=== PATIENT | male | born 1970 | race Caucasian/White ===

== ENCOUNTER 2018-09-17 14:29 | Observation (INO) | payer SELFPAY ==
[2018-09-17] MEDS ORDERED: ASPIRIN 81 MG TABLET, CHEWABLE PO ONE (15:05)
--- NOTE | 2018-09-17 15:08 | ER Document Report ---
ED Medical Screen (RME) - General Chief Complaint: Chest Pain Stated Complaint: CHEST PAIN, LEFT SHOULDER PAIN Time Seen by Provider: 09/17/18 15:05 Mode of Arrival: Ambulatory Information source: Patient Notes: 48-year-old male with hyperlipidemia presents with left-sided chest pain that started 15 hours prior to arrival. He describes it as a tightness that is worse with laying down. Denies any recent illness. I have greeted and performed a rapid initial assessment of this patient. A comprehensive ED assessment and evaluation of the patient, analysis of test results and completion of medical decision making process we will be contacted by additional ED providers. PHYSICAL EXAMINATION: Vital signs reviewed-tachycardic, hypertensive GENERAL: Well-appearing, well-nourished and in no acute distress. LUNGS: No respiratory distress Musculoskeletal: Normal range of motion NEUROLOGICAL: Normal speech, normal gait. PSYCH: Normal mood, normal affect. SKIN: Warm, Dry, normal turgor, no rashes or lesions noted. TRAVEL OUTSIDE OF THE [place] IN LAST 30 DAYS: No - HPI Onset: This morning Onset/Duration: Persistent Quality of pain: Other Severity: Moderate Associated Symptoms: Chest pain Exacerbated by: Supine Relieved by: Denies Similar symptoms previously: No Recently seen / treated by doctor: No - Related Data Smoking: Non-smoker Frequency of alcohol use: None Drug Abuse: None Allergies/Adverse Reactions: No Known Allergies Allergy (Unverified 09/17/18 14:31) Past Medical History - Social History Chew tobacco use (# tins/day): No Frequency of alcohol use: None Drug Abuse: None - Past Medical History Cardiac Medical History: Reports: Hx Hypercholesterolemia Pulmonary Medical History: Reports: Hx Asthma, Hx Bronchitis, Hx Pneumonia Neurological Medical History: Reports: Hx Migraine Renal/ Medical History: Reports: Hx Kidney Stones. Denies: Hx Peritoneal Dialysis GI Medical History: Reports: Hx Gastroesophageal Reflux Disease Psychiatric Medical History: Reports: Hx Depression Past Surgical History: Reports: Hx Tonsillectomy Physical Exam - Vital signs Vitals: Temp Pulse Resp BP Pulse Ox 98.8 F 103 H 18 156/110 H 97 09/17/18 14:42 09/17/18 14:42 09/17/18 14:42 09/17/18 14:42 09/17/18 14:42 Course - Vital Signs Vital signs: Temp Pulse Resp BP Pulse Ox 98.8 F 103 H 18 156/110 H 97 09/17/18 14:42 09/17/18 14:42 09/17/18 14:42 09/17/18 14:42 09/17/18 14:42 Doctor's Discharge - Discharge Referrals: LOCALMD,NO [Primary Care Provider] - Follow up as needed
[2018-09-17 16:16] LABS: ABSOLUTE BASOPHILS # (AUTO) 0.1 10^3/uL (0.0-0.2); ABSOLUTE EOSINOPHILS # (AUTO) 0.1 10^3/uL (0.0-0.6); ABSOLUTE LYMPHOCYTES (AUTO) 1.9 10^3/uL (0.5-4.7); ABSOLUTE MONOCYTES (AUTO) 0.7 10^3/uL (0.1-1.4); ABSOLUTE NEUT (AUTO) 6.1 10^3/uL (1.7-8.2); BASOPHILS % (AUTO) 0.9 % (0-2); HEMATOCRIT 49.3 % (37.9-51.0); HEMOGLOBIN 17.2 g/dL (13.5-17.0); LYMPHOCYTES % (AUTO) 21.6 % (13-45); MEAN CORPUSCULAR HEMOGLOBIN 30.5 pg (27.0-33.4); MEAN CORPUSCULAR HGB CONC 34.9 g/dL (32.0-36.0); MEAN CORPUSCULAR VOLUME 87 fl (80-97); MONOCYTES % (AUTO) 8.2 % (3-13); PLATELET COUNT 156 10^3/uL (150-450); RED BLOOD COUNT 5.64 10^6/uL (4.35-5.55); RED CELL DISTRIBUTION WIDTH 13.9 % (11.5-14.0); SEGMENTED NEUTROPHILS % (AUTO) 68.3 % (42-78); TOTAL CELLS COUNTED % (AUTO) 100 %; WHITE BLOOD COUNT 8.9 10^3/uL (4.0-10.5)
--- NOTE | 2018-09-17 16:19 | RADIOLOGY REPORT (SQ) ---
EXAM DESCRIPTION: CHEST 2 VIEWS COMPLETED DATE/TIME: 09/17/2018 4:01 pm REASON FOR STUDY: chest pain COMPARISON: None. TECHNIQUE: Frontal and lateral radiographic views of the chest acquired. NUMBER OF VIEWS: Two view. LIMITATIONS: None. FINDINGS: LUNGS AND PLEURA: No opacities, masses or pneumothorax. No pleural effusion. MEDIASTINUM AND HILAR STRUCTURES: No masses or contour abnormalities. HEART AND VASCULAR STRUCTURES: Heart normal size. No evidence for failure. BONES: No acute findings. HARDWARE: None in the chest. OTHER: No other significant finding. IMPRESSION: NO SIGNIFICANT RADIOGRAPHIC FINDING IN THE CHEST. TECHNICAL DOCUMENTATION: JOB ID: [id number] [employer] All Rights Reserved Reading location - IP/workstation name: [email or web address]
[2018-09-17 16:28] LABS: ALANINE AMINOTRANSFERASE 40 U/L (21-72); ALBUMIN 4.5 g/dL (3.5-5.0); ALKALINE PHOSPHATASE 72 U/L (38-126); ANION GAP 8 (5-19); ASPARTATE AMINO TRANSFERASE 39 U/L (17-59); BILIRUBIN,DIRECT 0.3 mg/dL (0.0-0.4); BILIRUBIN,TOTAL 0.9 mg/dL (0.2-1.3); BLOOD UREA NITROGEN 12 mg/dL (7-20); CALCIUM 9.6 mg/dL (8.4-10.2); CARBON DIOXIDE 27 mmol/L (22-30); CHLORIDE 105 mmol/L (98-107); CREATINE KINASE 95 U/L (55-170); GLUCOSE 108 mg/dL (75-110); POTASSIUM 4.2 mmol/L (3.6-5.0); SODIUM 139.9 mmol/L (137-145); TOTAL PROTEIN 7.9 g/dL (6.3-8.2)
[2018-09-17 16:46] LABS: CREATINE KINASE MB 0.78 ng/mL (<4.55)
[2018-09-17 16:51] LABS: TROPONIN I < 0.012 ng/mL
[2018-09-17] MEDS ORDERED: DIPHENHYDRAMINE HCL 50 MG/ML VIAL IV ONE (17:01)
[2018-09-17] MEDS ORDERED: METOCLOPRAMIDE HCL INJ/PF 10 MG/2 ML SDV IV ONE (17:01)
[2018-09-17] MEDS ORDERED: ACETAMINOPHEN 325 MG TABLET PO ONE (17:02)
[2018-09-17] MEDS ORDERED: METOPROLOL TARTRATE PF/INJ 5 MG/5 ML SDV IV ONE (17:03)
--- NOTE | 2018-09-17 17:50 | RADIOLOGY REPORT (SQ) ---
EXAM DESCRIPTION: CT HEAD WITHOUT COMPLETED DATE/TIME: 09/17/2018 5:30 pm REASON FOR STUDY: headache, htn COMPARISON: None. TECHNIQUE: Axial images acquired through the brain without intravenous contrast. Images reviewed wi th bone, brain and subdural windows. Images stored on PACS. All CT scanners at this facility use dose modulation, iterative reconstruction, and/or weight based d osing when appropriate to reduce radiation dose to as low as reasonably achievable (ALARA). [facility]: Dose Right [facility]: CareDose [facility]: Dose Right [facility]: Teradose 4D [facility]: [employer] Technologies RADIATION DOSE: CT Rad equipment meets quality standard of care and radiation dose reduction techniq ues were employed. CTDIvol: 53.2 mGy. DLP: 1044 mGy-cm. mGy. LIMITATIONS: None. FINDINGS: VENTRICLES: Normal size and contour. CEREBRUM: There is a 6 mm linear hyperdensity at the right frontal lobe (axial image 23/36). No mass effect, no midline shift. No evidence for acute territorial infarction. Normal mosqueda/white matter di fferentiation. CEREBELLUM: No mass effect. No hemorrhage. No alteration of density. No evidence for acute infarct ion. EXTRAAXIAL SPACES: No fluid collections. No masses. ORBITS AND GLOBE: Symmetrical contour of the globes. CALVARIUM: No depressed calvarial fracture. PARANASAL SINUSES: No air-fluid level. SOFT TISSUES: No hematoma. IMPRESSION: 6 mm linear hyperdensity at the right frontal lobe, may represent a small area of hemorr yoni versus a vascular malformation. Contrast-enhanced MRI can be obtained for better evaluation. EVIDENCE OF ACUTE STROKE: NO. COMMUNICATION The critical information above was relayed directly by me by telephone to Dr. Anthony mccray 09/17/2018 at 17:41 hours with readback verification. Quality ID # [id number]: Final reports with documentation of one or more dose reduction techniques (e.g., Au tomated exposure control, adjustment of the mA and/or kV according to patient size, use of iterative reconstruction technique) TECHNICAL DOCUMENTATION: JOB ID: [id number] [employer]- All Rights Reserved Reading location - IP/workstation name: [email or web address]
--- NOTE | 2018-09-17 19:44 | RADIOLOGY REPORT (SQ) ---
EXAM DESCRIPTION: MRI HEAD COMBO COMPLETED DATE/TIME: 09/17/2018 7:15 pm REASON FOR STUDY: andujar COMPARISON: None. TECHNIQUE: Multiplanar imaging includes noncontrasted T1, T2, FLAIR, diffusion with ADC map and post gadolinium contrast T1 sequences. Images stored on PACS. CONTRAST TYPE AND DOSE: 15 mL Dotarem. RENAL FUNCTION: GFR > 60. LIMITATIONS: None. FINDINGS: ANATOMY: No anomalies. Normal vascular flow voids. Pituitary fossa normal. CSF SPACES: Normal in size and contour. No hemorrhage. CEREBRUM: Sulci and gyri normal in size and contour. Normal white matter signal on FLAIR imaging. No evidence of hemorrhage, mass, or extraaxial fluid collection. No abnormal enhancement post contrast. POSTERIOR FOSSA: No signal alteration. No hemorrhage. No edema, masses, or mass effect. Internal yuni tory canals, cerebellopontine angles, mastoids normal. No enhancing lesions. No abnormal enhancement post contrast. DIFFUSION IMAGING: Negative for acute or subacute infarction. ORBITS: No masses. Globes normal. PARANASAL SINUSES: No fluid levels. Mucosa normal. OTHER: No other significant finding. IMPRESSION: NORMAL MRI OF THE BRAIN WITHOUT AND WITH INTRAVENOUS GADOLINIUM CONTRAST. EVIDENCE OF ACUTE STROKE: NO. TECHNICAL DOCUMENTATION: JOB ID: [id number] [employer]- All Rights Reserved Reading location - IP/workstation name: [email or web address]
--- NOTE | 2018-09-17 19:49 | ER Document Report ---
ED General - General Chief Complaint: Chest Pain Stated Complaint: CHEST PAIN, LEFT SHOULDER PAIN Time Seen by Provider: 09/17/18 15:05 Mode of Arrival: Ambulatory Information source: Patient Notes: This is the 48-year-old man with a history of elevated cholesterol who presents to the emergency room with left-sided chest pain radiating to the left shoulder and up the left neck associated with palpitations. Patient also reports headache. Patient states that he has had the pain on and off.. TRAVEL OUTSIDE OF THE [place] IN LAST 30 DAYS: No - HPI Onset: Yesterday Onset/Duration: Gradual Quality of pain: Dull Severity: Moderate Pain Level: 2 Associated symptoms: Chest pain. denies: Fever, Shortness of breath Exacerbated by: Denies Relieved by: Denies Similar symptoms previously: No Recently seen / treated by doctor: No - Related Data Allergies/Adverse Reactions: No Known Allergies Allergy (Unverified 09/17/18 14:31) Past Medical History - General Information source: Patient - Social History Smoking Status: Never Smoker Cigarette use (# per day): No Chew tobacco use (# tins/day): No Frequency of alcohol use: None Drug Abuse: None Lives with: Family Family History: None Patient has suicidal ideation: No Patient has homicidal ideation: No - Past Medical History Cardiac Medical History: Reports: Hx Hypercholesterolemia Pulmonary Medical History: Reports: Hx Asthma, Hx Bronchitis, Hx Pneumonia Neurological Medical History: Reports: Hx Migraine Renal/ Medical History: Reports: Hx Kidney Stones. Denies: Hx Peritoneal Dialysis GI Medical History: Reports: Hx Gastroesophageal Reflux Disease Psychiatric Medical History: Reports: Hx Depression Past Surgical History: Reports: Hx Tonsillectomy Review of Systems - Review of Systems Constitutional: denies: Chills, Fever EENT: No symptoms reported Cardiovascular: See HPI Respiratory: No symptoms reported Gastrointestinal: No symptoms reported Genitourinary: No symptoms reported Male Genitourinary: No symptoms reported Musculoskeletal: No symptoms reported Skin: No symptoms reported Hematologic/Lymphatic: No symptoms reported Neurological/Psychological: See HPI Physical Exam - Vital signs Vitals: Temp Pulse Resp BP Pulse Ox 98.8 F 103 H 18 156/110 H 97 09/17/18 14:42 09/17/18 14:42 09/17/18 14:42 09/17/18 14:42 09/17/18 14:42 Notes: Physical exam: GENERAL: Patient is alert and oriented x3, complaining of headache. Patient was hypertensive with a blood pressure of 156/110. HEAD: Atraumatic, normocephalic. EYES: Pupils equal round and reactive to light, extraocular movements intact, sclera anicteric, conjunctiva are normal. ENT: TMs normal, nares patent, oropharynx clear without exudates. Moist mucous membranes. NECK: Normal range of motion, supple without obvious mass or JVD. LUNGS: Breath sounds clear to auscultation bilaterally and equal. No wheezes rales or rhonchi. HEART: Regular rate and rhythm without murmurs, rubs or gallops. ABDOMEN: Soft, normoactive bowel sounds. No tenderness to palpation. No guarding, no rebound. No masses appreciated. EXTREMITIES: Normal range of motion, no pitting or edema. No clubbing or cyanosis. NEUROLOGICAL: Cranial nerves II through XII grossly intact. Normal speech, motor 5/5, moving all extremities. PSYCH: Normal mood, normal affect. SKIN: Warm, Dry, normal turgor, no rashes or lesions noted. Course - Re-evaluation Re-evalutation: 09/17/18 19:56 Note: Patient was treated with IV Reglan, IV Benadryl and IV fluids. CT of the head showed a small area of calcification and the differential included possible small bleed versus vascular anomaly. For this reason, MRI of the brain with and without contrast which was performed which showed no bleeding. Since headache has actually improved as the blood pressures come down. - Vital Signs Vital signs: Temp Pulse Resp BP Pulse Ox 98.8 F 103 H 18 156/110 H 97 09/17/18 14:42 09/17/18 14:42 09/17/18 14:42 09/17/18 14:42 09/17/18 14:42 - Laboratory Result Diagrams: 09/17/18 15:50 09/17/18 15:50 Laboratory results interpreted by me: 09/17/18 15:50 RBC 5.64 H Hgb 17.2 H - Diagnostic Test Radiology reviewed: Image reviewed, Reports reviewed - RI of the brain shows no bleeding Discharge - Discharge Clinical Impression: Chest pain, Uncontrolled hypertension Condition: Stable Disposition: ADMITTED OBSERVATION Admitting Provider: Hospitalist - Dr Espino Unit Admitted: Telemetry Referrals: LOCALMD,NO [NO LOCAL MD] - Follow up as needed
[2018-09-17] MEDS ORDERED: MORPHINE SULFATE 10 MG/ML INJ IV ONE (19:54)
[2018-09-17] MEDS ORDERED: ONDANSETRON HCL INJ/PF 4 MG/2 ML SDV IV ONE (19:54)
[2018-09-17] MEDS ORDERED: ONDANSETRON HCL INJ/PF 4 MG/2 ML SDV IV PRN (20:12)
[2018-09-17] MEDS ORDERED: ONDANSETRON 4 MG TAB.RAPDIS PO PRN (20:12)
[2018-09-17] MEDS ORDERED: MAG HYDROX/AL HYDROX/SIMETH SUSP 30 ML UDCUP PO PRN (20:12)
[2018-09-17] MEDS ORDERED: MAGNESIUM HYDROXIDE SUSP 30 ML UDCUP PO PRN (20:12)
[2018-09-17] MEDS ORDERED: ALBUTEROL SULFATE 0.083% NEB 2.5 MG/3 ML AMPUL NEB PRN (20:19)
[2018-09-17] MEDS ORDERED: ACETAMINOPHEN 650 MG SUPP.RECT PR PRN (20:19)
[2018-09-17] MEDS ORDERED: MORPHINE SULFATE 10 MG/ML INJ IV PRN ×3 (20:19)
[2018-09-17] MEDS ORDERED: ACETAMINOPHEN 325 MG TABLET PO PRN (20:19)
[2018-09-17] MEDS ORDERED: NITROGLYCERIN 0.4 MG/TAB 25 TAB/BOTTLE SL PRN (20:20)
[2018-09-17] MEDS ORDERED: GLUCAGON,HUMAN RECOMB 1 MG INJ SUBCUT PRN (20:31)
[2018-09-17] MEDS ORDERED: DEXTROSE 40% GEL 15 GM TUBE PO PRN ×2 (20:31)
[2018-09-17] MEDS ORDERED: DEXTROSE 50%-WATER 25 GM/50 ML DISP.SYRIN IV PRN ×2 (20:31)
[2018-09-17] MEDS ORDERED: HYDRALAZINE HCL INJ/PF 20 MG/1 ML SDV IV PRN (20:32)
[2018-09-17] MEDS: FAMOTIDINE 20 MG TABLET PO SCH (21:58)
[2018-09-17 22:26] LABS: CREATINE KINASE MB 0.64 ng/mL (<4.55)
[2018-09-17 22:27] LABS: TROPONIN I < 0.012 ng/mL
--- NOTE | 2018-09-18 00:53 | EKG REPORT ---
SEVERITY:- ABNORMAL ECG - SINUS TACHYCARDIA LEFT VENTRICULAR HYPERTROPHY BORDERLINE T ABNORMALITIES, INFERIOR LEADS : Confirmed by: Swetha Weaver MD 18-Sep-2018 00:52:31
--- NOTE | 2018-09-18 01:09 | PDOC H&P ---
History of Present Illness Admission Date/PCP: 09/17/18 20:00 Patient complains of: Chest pain History of Present Illness: LEWIS WEBER is a 48 year old male who presented to the emergency room with a history of sudden onset of chest pain on the morning of admission. He admits that he has been having a constant dull chest tightness/pressure in the left anterior chest with radiation to the left neck and left shoulder. The pain has been moderate to severe in intensity since its onset at approximately 1 AM on the morning of admission. The chest pain has been accompanied by moderate palpitations (tachycardia) occurring with the chest pain and a constant, severe , throbbing left facial and frontal headache having its onset shortly after the onset of his chest pain today. Both the headache and the chest pain were worsened by assuming a recumbent position. He denies similar prior episodes and has not identified any other aggravating or ameliorating factors for his chest pain or headache. He admits a past history of "triglyceride problems", but is not taking any medications and does not see a doctor on a regular basis. In the emergency room he was found to have negative cardiac enzymes, and EKG showing left ventricular hypertrophy with no evidence of acute myocardial ischemia or injury, a CT scan of the head which was questionable for an intracranial hemorrhage but an MRI of the brain showed no evidence of intracranial hemorrhage or intracranial vascular abnormalities. His chest pain improved in the emergency room and as such he was admitted for observation status and further evaluation and treatment with a Cardiolite stress test scheduled for the morning. Past Medical History Cardiac Medical History: Reports: Hyperlipidema - Hypertriglyceridemia Pulmonary Medical History: Reports: Asthma, Bronchitis, Pneumonia EENT Medical History: Reports: None Neurological Medical History: Reports: Migraine Denies: Seizures Endocrine Medical History: Denies: Diabetes Mellitus Type 1, Diabetes Mellitus Type 2, Hyperthyroidism, Hypothyroidism Renal/ Medical History: Denies: Chronic Kidney Disease, Nephrolithiasis Malignancy Medical History: Reports: None GI Medical History: Reports: Gastroesophageal Reflux Disease Denies: Cirrhosis, Hepatitis Musculoskeltal Medical History: Denies: Arthritis, Gout Skin Medical History: Denies: Eczema, Psoriasis Psychiatric Medical History: Reports: Depression, Tobacco Dependency Denies: Alcohol Dependency, Substance Abuse Traumatic Medical History: Reports: None Hematology: Denies: Anemia, Bleeding Tendencies Infectious Medical History: Reports: None Past Surgical History Past Surgical History: Reports: Tonsillectomy Social History Information Source: Patient Lives with: Family Smoking Status: Never Smoker Frequency of Alcohol Use: None Hx Recreational Drug Use: No Drugs: None Hx Prescription Drug Abuse: No - Advance Directive Resuscitation Status: Full Code Surrogate healthcare decision maker:: Mother: Mirna Weber Family History Family History: CAD, DM, Hypertension, Other - Stroke Parental Family History Reviewed: Yes Children Family History Reviewed: No Sibling(s) Family History Reviewed.: Yes Medication/Allergy Home Medications: Esomeprazole Mag Trihydrate [Nexium] 40 mg PO PRN PRN 09/17/18 Allergies/Adverse Reactions: No Known Allergies Allergy (Verified 09/17/18 21:27) Review of Systems Constitutional: PRESENT: as per HPI, headache(s). ABSENT: chills, fever(s) Eyes: ABSENT: visual disturbances, other - Ocular pain Ears: ABSENT: hearing changes, other - Ear pain Nose, Mouth, and Throat: ABSENT: mouth pain, sore throat Cardiovascular: PRESENT: as per HPI, chest pain, palpitations. ABSENT: dyspnea on exertion, edema, orthropnea Respiratory: ABSENT: cough, dyspnea Gastrointestinal: ABSENT: abdominal pain, constipation, diarrhea, nausea, vomiting Musculoskeletal: ABSENT: back pain, joint swelling Integumentary: ABSENT: pruritus, rash Neurological: PRESENT: as per HPI, other - Headache. ABSENT: confusion, convulsions, memory loss, syncope Psychiatric: ABSENT: anxiety, depression Endocrine: ABSENT: cold intolerance, heat intolerance Hematologic/Lymphatic: ABSENT: easy bleeding, easy bruising Physical Exam Vital Signs: Temp Pulse Resp BP Pulse Ox 98.8 F 103 H 18 156/110 H 97 09/17/18 14:42 09/17/18 14:42 09/17/18 14:42 09/17/18 14:42 09/17/18 14:42 General appearance: PRESENT: no acute distress, cooperative, well-developed, well-nourished Head exam: PRESENT: atraumatic, normocephalic Eye exam: PRESENT: EOMI. ABSENT: scleral icterus Ear exam: PRESENT: normal external ear exam. ABSENT: bleeding Mouth exam: PRESENT: dry mucosa, neck supple Neck exam: ABSENT: JVD, thyromegaly, tracheal deviation Respiratory exam: PRESENT: clear to auscultation chandrakant, symmetrical, unlabored Cardiovascular exam: PRESENT: RRR. ABSENT: clicks, diastolic murmur, gallop, rubs, systolic murmur Pulses: PRESENT: normal radial pulses, normal dorsalis pedis pul Vascular exam: PRESENT: normal capillary refill. ABSENT: pallor GI/Abdominal exam: PRESENT: normal bowel sounds, soft Rectal exam: PRESENT: deferred Extremities exam: ABSENT: joint swelling, pedal edema Musculoskeletal exam: PRESENT: full ROM, normal inspection Neurological exam: PRESENT: alert, oriented to person, oriented to place, oriented to time, oriented to situation, CN II-XII grossly intact. ABSENT: motor sensory deficit Psychiatric exam: PRESENT: appropriate affect, normal mood Skin exam: PRESENT: dry, intact, warm. ABSENT: jaundice, rash, urticaria Results Impressions: Chest X-Ray 09/17/18 15:06 IMPRESSION: NO SIGNIFICANT RADIOGRAPHIC FINDING IN THE CHEST. Head CT 09/17/18 17:02 IMPRESSION: 6 mm linear hyperdensity at the right frontal lobe, may represent a small area of hemorrhage versus a vascular malformation. Contrast-enhanced MRI can be obtained for better evaluation. EVIDENCE OF ACUTE STROKE: NO. Head MRI 09/17/18 17:43 IMPRESSION: NORMAL MRI OF THE BRAIN WITHOUT AND WITH INTRAVENOUS GADOLINIUM CONTRAST. EVIDENCE OF ACUTE STROKE: NO. Assessment & Plan - Diagnosis (1) Chest pain Qualifiers: Chest pain type: unspecified Qualified Code(s): R07.9 - Chest pain, unspecified Is this a current diagnosis for this admission?: Yes Plan: Patient will undergo a cardiac stress test tomorrow with Cardiolite imaging. He will have serial cardiac enzymes and EKG evaluations performed. The pain will be treated with intravenous morphine sulfate on a sliding scale as needed basis. Daily low-dose aspirin therapy is initiated. (2) Headache Qualifiers: Headache type: unspecified Headache chronicity pattern: unspecified pattern Intractability: not intractable Qualified Code(s): R51 - Headache Is this a current diagnosis for this admission?: Yes Plan: Patient's headache will be treated with Tylenol for lesser pain and a sliding scale intravenous morphine sulfate regimen for greater pain. (3) HLD (hyperlipidemia) Qualifiers: Hyperlipidemia type: unspecified Qualified Code(s): E78.5 - Hyperlipidemia , unspecified Is this a current diagnosis for this admission?: Yes Plan: A lipid profile will be obtained and appropriate therapy will be initiated based upon the results of his lipid profile. (4) Accelerated hypertension Is this a current diagnosis for this admission?: Yes Plan: Patient's blood pressure will be addressed initially utilizing hydralazine 20 mg IV every 4 hours as needed hypertension (systolic pressure greater than 160 or diastolic pressure greater than 100). Daily aspirin therapy will be initiated. Further antihypertensive treatment will be determined after his cardiac stress test has been performed. (5) Obesity (BMI 30-39.9) Is this a current diagnosis for this admission?: Yes Plan: Dietitian consult is obtained for initial instruction for this patient to assist him in lifestyle choices, weight loss and improved heart health. - Time Time Spent: 30 to 50 Minutes Critical Time spent with patient: Less than 15 minutes Medications reviewed and adjusted accordingly: No - On no medications at admission Anticipated discharge: Home Within: within 48 hours - Inpatient Certification Based on my medical assessment, after consideration of the patient's comorbidities, presenting symptoms, or acuity I expect that the services needed warrant INPATIENT care.: No I certify that my determination is in accordance with my understanding of Medicare's requirements for reasonable and necessary INPATIENT services [42 CFR 412.3e].: No Medical Necessity: Need For Continuous Telemetry Monitoring, Need for Pain Control
[2018-09-18 05:20] LABS: ABSOLUTE BASOPHILS # (AUTO) 0.1 10^3/uL (0.0-0.2); ABSOLUTE EOSINOPHILS # (AUTO) 0.2 10^3/uL (0.0-0.6); ABSOLUTE LYMPHOCYTES (AUTO) 2.6 10^3/uL (0.5-4.7); ABSOLUTE MONOCYTES (AUTO) 0.8 10^3/uL (0.1-1.4); ABSOLUTE NEUT (AUTO) 3.7 10^3/uL (1.7-8.2); BASOPHILS % (AUTO) 0.7 % (0-2); EOSINOPHILS % (AUTO) 2.3 % (0-6); HEMATOCRIT 45.1 % (37.9-51.0); HEMOGLOBIN 15.6 g/dL (13.5-17.0); LYMPHOCYTES % (AUTO) 35.7 % (13-45); MEAN CORPUSCULAR HEMOGLOBIN 30.2 pg (27.0-33.4); MEAN CORPUSCULAR HGB CONC 34.6 g/dL (32.0-36.0); MEAN CORPUSCULAR VOLUME 87 fl (80-97); MONOCYTES % (AUTO) 10.3 % (3-13); PLATELET COUNT 133 10^3/uL (150-450); RED BLOOD COUNT 5.17 10^6/uL (4.35-5.55); TOTAL CELLS COUNTED % (AUTO) 100 %; WHITE BLOOD COUNT 7.3 10^3/uL (4.0-10.5)
[2018-09-18 05:40] LABS: ANION GAP 9 (5-19); BLOOD UREA NITROGEN 18 mg/dL (7-20); CALCIUM 9.1 mg/dL (8.4-10.2); CARBON DIOXIDE 28 mmol/L (22-30); CHLORIDE 106 mmol/L (98-107); CHOLESTEROL 213.59 mg/dL (0-200); GLUCOSE 138 mg/dL (75-110); SODIUM 142.6 mmol/L (137-145); TRIGLYCERIDES 450 mg/dL (<150)
[2018-09-18 05:45] LABS: CREATINE KINASE MB 0.48 ng/mL (<4.55)
[2018-09-18 05:49] LABS: FREE T3 4.95 pg/mL (2.77-5.27); FREE T4 (FREE THYROXINE) 1.07 ng/dL (0.78-2.19); TROPONIN I < 0.012 ng/mL
[2018-09-18 05:50] LABS: DIRECT LDL 91 mg/dL (<100)
[2018-09-18 06:03] LABS: THYROID STIMULATING HORMONE 1.11 uIU/mL (0.47-4.68)
--- NOTE | 2018-09-18 07:43 | EKG REPORT ---
SEVERITY:- BORDERLINE ECG - SINUS RHYTHM NONSPECIFIC ST-T CHANGES- INFERIOR LEADS : Confirmed by: Humberto Gloria MD 18-Sep-2018 07:42:23
[2018-09-18] MEDS ORDERED: ENOXAPARIN SODIUM INJ 40 MG/0.4 ML DISP.SYRIN SUBCUT SCH (10:00)
[2018-09-18] MEDS ORDERED: DOCUSATE SODIUM 100 MG CAPSULE PO SCH (10:00)
[2018-09-18] MEDS ORDERED: ASPIRIN 81 MG TABLET, ENT COATED PO SCH (10:00)
[2018-09-18] MEDS: FAMOTIDINE 20 MG TABLET PO SCH (10:33)
[2018-09-18 11:30] LABS: CREATINE KINASE MB 0.49 ng/mL (<4.55)
[2018-09-18 11:35] LABS: TROPONIN I < 0.012 ng/mL
[2018-09-18] MEDS ORDERED: REGADENOSON INJ 0.4 MG/5 ML DISP.SYRIN IV ONE (13:56)
[2018-09-18 15:54] VITALS: BP 133/89
--- NOTE | 2018-09-19 19:14 | DRAGON STRESS TEST REPORT ---
Intravenous Lexiscan Cardiolite stress test using single photon emmision computerized tomography. Date of procedure: 09/18/2018. Ordering Provider: Dr. Espino. Patient's status : In patient. Indication: Chest pain. Coronary risk factors: Age, diabetes mellitus, hypertension, and family history of coronary artery disease. Resting EKG: Sinus Rhythm. Within Normal Limits. Stress EKG: No changes of ischemia. The patient no chest pain or discomfort, and there were no arrhythmias seen. Reason for termination: Protocol. Conclusions: Normal EKG and hemodynamic response to IV Lexiscan. Nuclear data: At rest the patient was given 13.65 millicuries of technetium 99m sestamibi injected intravenously. As per protocol rest non gated SPECT images were obtained. Subsequently the patient was given intravenous Lexiscan at a dose of 0.4 mg in 5 mL intravenously, followed by flush with normal saline. Subsequently the stress dose of 43.2 millicuries of technetium 99m sestamibi was injected intravenously. As per protocol stress gated images were obtained. Nuclear interpretation: Review of images showed that all segments of the myocardium had normal perfusion at rest, and normal perfusion post stress with IV Lexiscan. All segments of the myocardium had normal motion, contraction, and thickening by gated study. T. I D. ratio was normal at 0.88. There is no transient ischemic calcification of the left ventricle. Computer read rest, and stress left ventricular ejection fraction were 65 %, and 61 %, respectively. Conclusion: 1. There is no scintigraphic evidence of Lexiscan induced myocardial ischemia. 2. There is no scintigraphic evidence of myocardial infarction/scar. Recommendations: Aggressive risk factor modification, and treating the underlying co- morbidities. MTDD
== END 2018-09-18 16:15 | disposition home or self-care (01) ==
LOC: ER 14:29 → EH 20:00 → 5 21:41
PROVIDERS: ADMIT Emergency Medicine; ATTEND Emergency Medicine
DX: R07.9 Chest pain, unspecified (principal); R51 Headache; E78.5 Hyperlipidemia, unspecified; I11.9 Hypertensive heart disease without heart failure; E66.9 Obesity, unspecified; R00.0 Tachycardia, unspecified; K21.9 Gastro-esophageal reflux disease without esophagitis; M25.512 Pain in left shoulder; Z68.39 Body mass index [BMI] 39.0-39.9, adult; Z82.49 Family history of ischemic heart disease and other diseases of the circulatory system; Z82.3 Family history of stroke; Z79.899 Other long term (current) drug therapy; Z87.442 Personal history of urinary calculi
CPT/HCPCS: 93005 ×2; 99285; 96374; 96375; 36415 ×2; 84439; 82553 ×2; 82550 ×2; 83735; 84443; 85025 ×2; 80048; 80053; 84484 ×2; 84481; 83036; 80061; 93017; 70553; 71046; 78452; 70450; 93010 ×2; G0378 ×3; A9576; A9500; J2785; J1200; J2765; J3490 ×2; J2270; J1650; J2405; Q9969

== ENCOUNTER 2018-12-21 18:37 | Emergency (ER) | payer SELFPAY ==
[2018-12-21] MEDS ORDERED: HYDROMORPHONE HCL INJ/PF 2 MG/ML AMPULE IV ONE (20:44)
[2018-12-21] MEDS ORDERED: ONDANSETRON HCL INJ/PF 4 MG/2 ML SDV IV ONE (20:45)
[2018-12-21 20:48] LABS: APPEARANCE,URINE SLIGHTLY-CLOUDY; BILIRUBIN,URINE NEGATIVE (NEGATIVE); COLOR,URINE YELLOW; GLUCOSE, URINE NEGATIVE (NEGATIVE); KETONES,URINE 20 mg/dL (NEGATIVE); LEUKOCYTE ESTERASE,URINE NEGATIVE (NEGATIVE); NITRITE,URINE NEGATIVE (NEGATIVE); PROTEIN,URINE NEGATIVE (NEGATIVE); UROBILINOGEN,URINE NEGATIVE mg/dL (<2.0)
--- NOTE | 2018-12-21 21:11 | ER Document Report ---
ED Medical Screen (RME) - General Chief Complaint: Flank Pain Stated Complaint: FLANK PAIN Time Seen by Provider: 12/21/18 20:44 Mode of Arrival: Ambulatory Information source: Patient, Relative Notes: Rapid medical exam triage note: Patient is a 48-year-old male history of previous kidney stone over 10 years ago presents with sudden onset at 1730 of left flank pain with radiation to the left lower quadrant and minimal dysuria, question hematuria. The patient denies testicular pain or fever or chills. He reports nausea but no vomiting. The patient denies any constipation, diarrhea. No chest pain or difficulty breathing. Review of old records shows normal BUN and creatinine 3 months ago. On exam uncomfortable 48-year-old male obvious discomfort, arrived by EMS and had received Toradol 30 IV and Dilaudid 1 mg IV. HEENT atraumatic normocephalic Neck supple nontender Cardiovascular regular rate and rhythm without appreciable murmur gallop or rub Lungs clear to auscultation bilaterally Abdomen is soft but tender left lower quadrant region extending around to the left flank region. No testicular pain or hernia. Extremities no edema. CT scan and urinalysis ordered patient will be given medications for pain and nausea and urine strained. Please see partner's note for further care and evaluation. TRAVEL OUTSIDE OF THE [place] IN LAST 30 DAYS: No - Related Data Allergies/Adverse Reactions: No Known Allergies Allergy (Verified 09/18/18 08:54) Past Medical History - Social History Chew tobacco use (# tins/day): No Frequency of alcohol use: None Drug Abuse: None - Past Medical History Cardiac Medical History: Reports: Hx Hypercholesterolemia - Hypertriglyceridemia Pulmonary Medical History: Reports: Hx Asthma, Hx Bronchitis, Hx Pneumonia Neurological Medical History: Reports: Hx Migraine. Denies: Hx Seizures Endocrine Medical History: Denies: Hx Diabetes Mellitus Type 1, Hx Diabetes Mellitus Type 2, Hx Hyperthyroidism, Hx Hypothyroidism Renal/ Medical History: Reports: Hx Kidney Stones. Denies: Hx Peritoneal Dialysis GI Medical History: Reports: Hx Gastroesophageal Reflux Disease. Denies: Hx Cirrhosis, Hx Hepatitis Musculoskeltal Medical History: Denies Hx Arthritis, Denies Hx Gout Skin Medical History: Denies Hx Eczema, Denies Hx Psoriasis Psychiatric Medical History: Reports: Hx Depression Infectious Medical History: Denies: Hx Hepatitis Past Surgical History: Reports: Hx Tonsillectomy - Immunizations History of Influenza Vaccine for 07/2017 - 12/2017 Season: Refused Physical Exam - Vital signs Vitals: Temp Pulse Resp BP Pulse Ox 98.0 F 75 20 144/90 H 96 12/21/18 19:06 12/21/18 19:06 12/21/18 19:06 12/21/18 19:06 12/21/18 19:06 Course - Vital Signs Vital signs: Temp Pulse Resp BP Pulse Ox 98.0 F 75 20 144/90 H 96 12/21/18 19:06 12/21/18 19:06 12/21/18 19:06 12/21/18 19:06 12/21/18 19:06 - Laboratory Laboratory results interpreted by me: 12/21/18 20:35 Urine Ketones 20 H
--- NOTE | 2018-12-21 21:42 | RADIOLOGY REPORT (SQ) ---
EXAM DESCRIPTION: CT ABDOMEN PELVIS WITHOUT IV CONTRAST COMPLETED DATE/TME: 12/21/2018 20:45 CLINICAL HISTORY: 48 years, Male, L flank pain, hx renal stones COMPARISON: None. TECHNIQUE: [id number] Images stored on PACS. All CT scanners at this facility use dose modulation, iterative reconstruction, and/or weight based dosing when appropriate to reduce radiation dose to as low as reasonably achievable (ALARA). [facility]: Dose Right [facility]: CareDose [facility]: Dose Right [facility]: Teradose 4D [facility]: [employer] LIMITATIONS: None. FINDINGS: Limited evaluation of the lung bases is unremarkable. Osseous structures are grossly intact. Fatty infiltrative change to the liver. The spleen, adrenal glands, pancreas are unremarkable. The gallbladder is present. Multiple punctate nonobstructing renal calculi bilaterally. In addition there is mild left-sided hydronephrosis and hydroureter, secondary to a 2 mm left UVJ calculus. Urinary bladder incompletely distended. Normal appendix. No free air or free fluid. No gross evidence for bowel obstruction IMPRESSION: Mild left-sided hydronephrosis and hydroureter secondary to a 2 mm left UVJ calculus. Multiple punctate nonobstructing renal calculi bilaterally. Diffuse fatty infiltrative change to the liver TECHNICAL DOCUMENTATION: Quality ID # 436: Final reports with documentation of one or more dose reduction techniques (e.g., Automated exposure control, adjustment of the mA and/or kV according to patient size, use of iterative reconstruction technique) copyright 2010 [employer]- All Rights Reserved
--- NOTE | 2018-12-21 22:20 | ER Document Report ---
ED General - General Chief Complaint: Flank Pain Stated Complaint: FLANK PAIN Time Seen by Provider: 12/21/18 20:44 Mode of Arrival: Ambulatory Notes: Patient is a 48-year-old male with history of kidney stones that presents to the emergency department for chief complaint of left flank pain. Patient reports the pain started around 515 this evening, describes as a sharp pain, could not get comfortable, was constant ache as well. The pain wraps around towards the groin as well. He said associated nausea without vomiting. Denies fevers, chills, night sweats, chest pain, shortness of breath, difficulty breathing, diarrhea or constipation. His last time he had a kidney stone was about 16 years ago, is been a while. He did not have to see urology at that time of spontaneously passed it. He is otherwise been healthy, and has no other complaints at this time. Past Medical History: Kidney stones Past Surgical History: Denies surgical history Social History: Denies current tobacco, alcohol or drug use. Family History: Reviewed and noncontributory for presenting illness Allergies: Reviewed, see documented allergy list. REVIEW OF SYSTEMS: Other than noted above, the 12 point review of systems was reviewed with the patient and were negative, all pertinent findings are included in the HPI. PHYSICAL EXAMINATION: Vital signs reviewed, nursing noted reviewed. GENERAL: Well-appearing, well-nourished and in no acute distress. HEAD: Atraumatic, normocephalic. EYES: Eyes appear normal, extraocular movements intact, sclera anicteric, conjunctiva are normal. ENT: nares patent, oropharynx clear without exudates. Moist mucous membranes. NECK: Normal range of motion, supple without lymphadenopathy LUNGS: Breath sounds clear to auscultation bilaterally and equal. No wheezes rales or rhonchi. HEART: Regular rate and rhythm without murmurs ABDOMEN: Soft, mild left CVA tenderness to palpation, normoactive bowel sounds. No rebound, guarding, or rigidity. No masses appreciated. EXTREMITIES: Nontender, good range of motion, no pitting or edema. NEUROLOGICAL: No focal neurological deficits. Moves all extremities spontaneously Motor and sensory grossly intact on exam. PSYCH: Normal mood, normal affect. SKIN: Warm, Dry, normal turgor, no rashes or lesions noted on exposed skin TRAVEL OUTSIDE OF THE [place] IN LAST 30 DAYS: No - Related Data Allergies/Adverse Reactions: No Known Allergies Allergy (Verified 09/18/18 08:54) Past Medical History - General Information source: Patient, Relative - Social History Smoking Status: Never Smoker Chew tobacco use (# tins/day): No Frequency of alcohol use: None Drug Abuse: None Family History: CAD, DM, Hypertension, Other - Stroke Patient has suicidal ideation: No Patient has homicidal ideation: No - Past Medical History Cardiac Medical History: Reports: Hx Hypercholesterolemia - Hypertriglyceridemia Pulmonary Medical History: Reports: Hx Asthma, Hx Bronchitis, Hx Pneumonia Neurological Medical History: Reports: Hx Migraine. Denies: Hx Seizures Endocrine Medical History: Denies: Hx Diabetes Mellitus Type 1, Hx Diabetes Mellitus Type 2, Hx Hyperthyroidism, Hx Hypothyroidism Renal/ Medical History: Reports: Hx Kidney Stones. Denies: Hx Peritoneal Dialysis GI Medical History: Reports: Hx Gastroesophageal Reflux Disease. Denies: Hx Cirrhosis, Hx Hepatitis Musculoskeletal Medical History: Denies Hx Arthritis, Denies Hx Gout Skin Medical History: Denies Hx Eczema, Denies Hx Psoriasis Psychiatric Medical History: Reports: Hx Depression Infectious Medical History: Denies: Hx Hepatitis Past Surgical History: Reports: Hx Tonsillectomy Physical Exam - Vital signs Vitals: Temp Pulse Resp BP Pulse Ox 98.0 F 75 20 144/90 H 96 12/21/18 19:06 12/21/18 19:06 12/21/18 19:06 12/21/18 19:06 12/21/18 19:06 Course - Re-evaluation Re-evalutation: Patient seen and examined vital signs reviewed. Laboratory data and imaging were ordered as appropriate for the patient's presenting symptoms and complaint, with consideration of any critical or life threatening conditions that may be associated with their obtained history and exam as noted above. Patient was treated with Dilaudid and Zofran ordered by triage provider Results were reviewed when available and demonstrated left 2 mm stone with mild hydronephrosis, at the UVJ The patient was re-evaluated and was stable, pain was controlled Evaluation was most consistent with ureteral stone, will prescribe the patient Flomax, medication for pain control, and Zofran for nausea and advised to follow-up with urology. Results were discussed with the patient at this point, after careful consideration I feel that that patient can be discharged from the emergency department, the patient was educated treatments and reasons to return to the emergency department based on their presumed diagnosis as noted above, they were advised to followup with a primary care physician in 2-3 days. Patient was agreeable to plan of care. *Note is created using voice recognition software and may contain spelling, synt ax or grammatical errors. Laboratory 12/21/18 20:35 Urine Color YELLOW Urine Appearance SLIGHTLY-CLOUDY Urine pH 6.0 Ur Specific [place] 1.020 Urine Protein NEGATIVE Urine Glucose (UA) NEGATIVE Urine Ketones 20 H Urine Blood NEGATIVE Urine Nitrite NEGATIVE Urine Bilirubin NEGATIVE Urine Urobilinogen NEGATIVE Ur Leukocyte Esterase NEGATIVE Urine WBC (Auto) 2 Urine RBC (Auto) 2 Urine Mucus (Auto) FEW Urine Ascorbic Acid NEGATIVE Abdomen/Pelvis CT 12/21/18 20:45 IMPRESSION: Mild left-sided hydronephrosis and hydroureter secondary to a 2 mm left UVJ calculus. Multiple punctate nonobstructing renal calculi bilaterally. Diffuse fatty infiltrative change to the liver TECHNICAL DOCUMENTATION: Quality ID # 436: Final reports with documentation of one or more dose reduction techniques (e.g., Automated exposure control, adjustment of the mA and/or kV according to patient size, use of iterative reconstruction technique) copyright 2011 [employer]- All Rights Reserved - Vital Signs Vital signs: Temp Pulse Resp BP Pulse Ox 98.0 F 75 20 144/90 H 96 12/21/18 19:06 12/21/18 19:06 12/21/18 19:06 12/21/18 19:06 12/21/18 19:06 - Laboratory Laboratory results interpreted by me: 12/21/18 20:35 Urine Ketones 20 H Discharge - Discharge Clinical Impression: Ureteral stone Condition: Stable Disposition: HOME, SELF-CARE Instructions: Kidney Stone ([facility]) Additional Instructions: Please follow-up with urology, several of them listed below, would anticipate you would pass the stone, please take the Flomax to help facilitate this, and if needed take the pain medication as prescribed. If you develop fevers, chills, lightheadedness, or your pain is not controlled, do not hesitate to return to the emergency department. [email or web address] [address] [email or web address] [address] [place] [address] [address] [email or web address] [address] Prescriptions: Naproxen [Naprosyn] 500 mg PO BID #30 tablet Ondansetron [Zofran Odt 4 mg Tablet] 1 tab PO Q8H PRN #15 tab.rapdis PRN Reason: For Nausea/Vomiting Tamsulosin HCl [Flomax] 0.4 mg PO DAILY #14 cap.er.24h Referrals: CHARLINE GONSALVES MD [ACTIVE STAFF] - Follow up in 3-5 days (primary care. )
[2018-12-21 22:43] VITALS: BP 135/85
== END 2018-12-21 22:43 | disposition home or self-care (01) ==
LOC: ER 18:37
DX: N20.1 Calculus of ureter (principal); R10.9 Unspecified abdominal pain; R11.2 Nausea with vomiting, unspecified; E78.00 Pure hypercholesterolemia, unspecified; Z87.442 Personal history of urinary calculi
CPT/HCPCS: 99284; 96374; 96375; 81001; 74176; J1170; J2405